=== PATIENT | male | born 1995 | race Caucasian/White ===

== ENCOUNTER 2019-09-22 20:10 | Emergency (ER) | payer MEDICAID, SELFPAY ==
[2019-09-22 20:19] VITALS: BP 112/69; PULSE 92; RESP 18; TEMP 37.9; O2SAT 96; BMI 23.1
[2019-09-22 20:31] VITALS: BP 112/69; PULSE 92; RESP 18; TEMP 37.9; O2SAT 96; BMI 23.1
[2019-09-22 20:39] LABS: UTC Strep Screen (Rapid) Positive (Negative)
--- NOTE | 2019-09-22 20:40 | HMH.EDUTC ---
[facility] [place] Disposition Clinical Impression: Strep throat Disposition: Home, Self-Care Condition on Discharge: Good Instructions: Strep Throat, DI for Strep Throat Additional Instructions: Drink plenty of fluids. Take tylenol or ibuprofen for pain or fever. Take the medications as directed. Follow up with your regular doctor. GO TO THE ER FOR ANY WORSENING SYMPTOMS THROW YOUR TOOTH BRUSH AWAY AND GET A NEW ONE TOMORROW. Prescriptions: Ondansetron [Zofran 4mg ODT] 4 mg PO Q8HP PRN #9 tab.rapdis PRN Reason: Nausea Transmission Status: Received by [facility] # [id number] Amoxicillin [Amoxicillin 500mg Tab] 500 mg PO TID 10 Days #30 tab Transmission Status: Received by [facility] # [id number] Referrals: Provider,Referral, [Primary Care Provider] - Time of Disposition: 20:49 Medical Decision Making - Medical Records Medical records reviewed: No: I reviewed the patient's medical records. - Geo Inquiry Pt receiving controlled substance: No Vital Signs: 09/22/19 20:19 09/22/19 20:31 Temperature 100.2 F H 100.2 F H Temperature Source Oral Oral Pulse Rate [Right Brachial] 92 H 92 H Respiratory Rate 18 18 Blood Pressure [Right Arm] 112/69 112/69 Blood Pressure Mean [Right Arm] 83 83 Blood Pressure Source [Right Arm] Automatic Cuff Automatic Cuff Blood Pressure Position [Right Arm] Sitting Sitting 02 Sat by Pulse Oximetry 96 96 Oxygen Delivery Method Room Air Room Air - Lab Data Lab results reviewed: Yes: I reviewed the patient's lab results. Lab Results 09/22/19 20:34: Strep Scn [facility] Positive A Orders (Tests/Meds): ED MEDICATIONS Discontinued Medications Generic Name Dose Route Start Last Admin Trade Name Freq PRN Reason Stop Dose Admin Amoxicillin 500 mg 09/22/19 20:45 09/22/19 20:50 Amoxicillin 500mg Capsule PO 09/22/19 20:46 500 mg ONCE ONE Administration Protocol Ibuprofen 800 mg 09/22/19 20:50 09/22/19 20:51 Motrin 400mg Tablet PO 09/22/19 20:51 800 mg ONCE ONE Administration Ibuprofen 800 mg 09/22/19 20:49 Motrin 400mg Tablet PO 09/22/19 20:50 ONCE ONE Ondansetron HCl 4 mg 09/22/19 20:45 09/22/19 20:50 Zofran 4mg Odt SL 09/22/19 20:46 4 mg ONCE ONE Administration [facility] [place] HPI - General Stated complaint: FEVER,SORE THROAT,COUGH,v&d,burks Time Seen by Provider: 09/22/19 20:40 Mode of Arrival: Ambulatory Source of Information: Patient Limitations: No Limitations Description of Symptoms (Recalled from Triage Doc. by RN): PATIENT C/O SORE THROAT, N/V/D, HEADACHE, AND FEVER X 3 DAYS HEENT Symptoms (Recalled from RN notes): Yes Resp Symptoms (Recalled from RN notes): No Skin Symptoms (Recalled from RN notes): No MS Symptoms (Recalled from RN notes): No Functional Status (Recalled from RN notes): WNL - History of Present Illness Provider Complaint: He c/o 2 days of worsening sore throat and fever. He has been exposed to strep throat. - Related Data Previous Rx's Medication Instructions Recorded Amoxicillin [Amoxicillin 500mg Tab] 500 mg PO TID 10 Days #30 tab 09/22/19 Ondansetron [Zofran 4mg ODT] 4 mg PO Q8HP PRN #9 tab.rapdis 09/22/19 Allergies Allergy/AdvReac Type Severity Reaction Status Date / Time iodine Allergy Verified 09/22/19 20:34 - Worker's Comp Is this a Worker's Comp case?: No [facility] History - Hepatitis A Screen Drug use history?: No High risk sexual behaviors?: No History of sexually transmitted infection?: No Currently employed?: No Childcare worker?: No Do you have indoor plumbing?: Yes Do you have electricity?: Yes Attestation statement:: This patient has been screened for Hepatitis A risk factors. I have reviewed the patient's past medical history: Yes - Social History Smoking Status: Current every day smoker Tobacco Type: cigarettes # Packs/Day (cigarettes): 1 Alcohol Intake: never Occupational Status: other ROS Obtained: Yes All systems reviewed & n
[2019-09-22 20:54] VITALS: BP 112/69; PULSE 92; RESP 18; TEMP 37.9; O2SAT 96
== END 2019-09-22 20:59 | disposition home or self-care (01) ==
PROVIDERS: Emergency Provider Nurse Practitioner Family
DX: J02.0 Streptococcal pharyngitis (principal); F17.210 Nicotine dependence, cigarettes, uncomplicated
CPT/HCPCS: 87880; 99201

== ENCOUNTER 2020-09-30 16:23 | Emergency (ER) | payer OTHER, SELFPAY ==
[2020-09-30 17:04] VITALS: BP 133/83; PULSE 76; RESP 16; TEMP 37.3; O2SAT 96; BMI 25.0
--- NOTE | 2020-09-30 17:20 | HMH.EDUTC ---
[facility] [place] Clinical Impression: Acute bronchitis Qualifiers: Bronchitis organism: unspecified organism Qualified Code(s): J20.9 - Acute bronchitis, unspecified Pharyngitis Qualifiers: Pharyngitis/tonsillitis etiology: unspecified etiology Qualified Code(s): J02.9 - Acute pharyngitis, unspecified Disposition: Home, Self-Care Condition on Discharge: Good Instructions: DI for Acute Bronchitis, Preventing the Spread of Coronavirus Discharge Instructions Additional Instructions: Drink plenty of fluids. Take tylenol or ibuprofen for pain or fever. Take the medications as directed. Follow up with your regular doctor. GO TO THE ER FOR ANY WORSENING SYMPTOMS Prescriptions: Brompheniramine/Pseudoephed/Dm [Bromfed Dm Cough Syrup] 5 ml PO Q6HP PRN #240 syrup PRN Reason: Cough Transmission Status: Received by [facility] #[id number] predniSONE [Prednisone 20mg Tab] 20 mg PO BID 4 Days #8 tab Transmission Status: Received by [facility] #[id number] Azithromycin [Z-Dino 250mg Tab*] 250 mg PO UD DOSE PK #6 tab Transmission Status: Received by [facility] #[id number] Referrals: Provider,Referral, [Primary Care Provider] - Forms: Work/School Release Time of Disposition: 17:34 Medical Decision Making - Medical Records Medical records reviewed: No: I reviewed the patient's medical records. - Geo Inquiry Pt receiving controlled substance: No Vital Signs: 09/30/20 17:04 09/30/20 17:41 Temperature 99.2 F 98 F Temperature Source Oral Pulse Rate 77 Pulse Rate [Right] 76 Respiratory Rate 16 16 Blood Pressure 129/83 Blood Pressure [Right Arm] 133/83 Blood Pressure Mean [Right Arm] 99 02 Sat by Pulse Oximetry 96 [facility] [place] HPI - General Stated complaint: vomitting runny nose sore throat sob Time Seen by Provider: 09/30/20 17:20 Mode of Arrival: Ambulatory Source of Information: Patient Limitations: No Limitations Description of Symptoms (Recalled from Triage Doc. by RN): pt c/o cough, runny nose, sore throat, n/v, and soa all ongoing for two days. HEENT Symptoms (Recalled from RN notes): Yes (sore throat) Resp Symptoms (Recalled from RN notes): Yes (soa and cough) Skin Symptoms (Recalled from RN notes): No MS Symptoms (Recalled from RN notes): No Functional Status (Recalled from RN notes): na - History of Present Illness Provider Complaint: He states that for the past 2 days he has had chilling, body aches, cough, sore throat, and chest congestion. - Related Data Previous Rx's Medication Instructions Recorded Amoxicillin [Amoxicillin 500mg Tab] 500 mg PO TID 10 Days #30 tab 09/22/19 Ondansetron [Zofran 4mg ODT] 4 mg PO Q8HP PRN #9 tab.rapdis 09/22/19 Azithromycin [Z-Dino 250mg Tab*] 250 mg PO UD DOSE PK #6 tab 09/30/20 Brompheniramine/Pseudoephed/Dm 5 ml PO Q6HP PRN #240 syrup 09/30/20 [Bromfed Dm Cough Syrup] predniSONE [Prednisone 20mg 20 mg PO BID 4 Days #8 tab 09/30/20 Tab] Allergies Allergy/AdvReac Type Severity Reaction Status Date / Time iodine Allergy Verified 09/22/19 20:34 - Worker's Comp Is this a Worker's Comp case?: No H History - Hepatitis A Screen Drug use history?: No High risk sexual behaviors?: No History of sexually transmitted infection?: No Currently employed?: No Childcare worker?: No Do you have indoor plumbing?: Yes Do you have electricity?: Yes Attestation statement:: This patient has been screened for Hepatitis A risk factors. I have reviewed the patient's past medical history: Yes - Social History Smoking Status: Current every day smoker Tobacco Type: cigarettes # Packs/Day (cigarettes): 1 Alcohol Intake: never Occupational Status: other ROS Obtained: Yes All systems reviewed & no additional complaints - Constitutional Constitutional: Reports system reviewed and no additional complaints, except as docu - Eyes Eyes: Reports system reviewed and no additional complaints, except as docu - ENT Ears, Nose,
[2020-09-30 17:41] VITALS: BP 129/83; PULSE 77; RESP 16; TEMP 36.6
[2020-10-01 08:53] LABS: UTC Strep Screen (Rapid) Negative (Negative)
== END 2020-09-30 17:43 | disposition home or self-care (01) ==
PROVIDERS: Emergency Provider Nurse Practitioner Family
DX: J20.9 Acute bronchitis, unspecified (principal); J02.9 Acute pharyngitis, unspecified
CPT/HCPCS: 87880; 99202; G0463; U0003

== ENCOUNTER 2021-09-02 14:10 | Emergency (ER) | payer SELFPAY ==
[2021-09-02 14:30] VITALS: BP 107/62; PULSE 80; RESP 17; TEMP 36.8; O2SAT 98; BMI 23.6
--- NOTE | 2021-09-02 14:54 | HMH.EDUTC ---
[facility] [place] Disposition Clinical Impression: Exposure to COVID-19 virus Disposition: Home, Self-Care Condition on Discharge: Good Instructions: DI for COVID-19 (Suspected or Confirmed ), Preventing the Spread of Coronavirus Discharge Instructions Additional Instructions: *Monitor Temp, Over the counter Motrin or Tylenol as directed/as needed Tylenol every 4 hours and Motrin every 6 hours (as long as your family doctor has told you that you can take it) for fever or pain. and straight to ER if unable to lower temp less than 101.0 after medication given Follow up IMMEDIATELY for new or worsening symptoms or no Noticeable improvement over the next 48-72 hours. 911 for difficulty breathing or swallowing You were tested for today for COVID19 your test result should be back in the next 24-48 hours, you may check your results on the [facility] My Health Portal Make sure to take your Vitamins Vit. C Vit D and Zinc if you can take them Referrals: Provider,Referral, MD [Primary Care Provider] - As needed Forms: Work/School Release Medical Decision Making - Geo Inquiry Pt receiving controlled substance: No Geo was queried for this patient: No Vital Signs: 09/02/21 14:30 Temperature 98.2 F Temperature Source Oral Pulse Rate [Right Brachial] 80 Respiratory Rate 17 Blood Pressure [Right Arm] 107/62 L Blood Pressure Mean [Right Arm] 77 Blood Pressure Source [Right Arm] Automatic Cuff Blood Pressure Position [Right Arm] Sitting 02 Sat by Pulse Oximetry 98 Oxygen Delivery Method Room Air Orders (Tests/Meds): ORDERS Category Date Time Status Covid-19 Nasal PCR ([facility]) Routine Lab 09/02/21 14:22 Received [facility] [place] HPI - General Stated complaint: covid test Time Seen by Provider: 09/02/21 14:54 Mode of Arrival: Ambulatory Source of Information: Patient Limitations: No Limitations Description of Symptoms (Recalled from Triage Doc. by RN): COVID TEST D/T EXPOSURE, DENIES SYMPTOMS HEENT Symptoms (Recalled from RN notes): No Resp Symptoms (Recalled from RN notes): No Skin Symptoms (Recalled from RN notes): No MS Symptoms (Recalled from RN notes): No Functional Status (Recalled from RN notes): WNL - History of Present Illness Provider Complaint: Patient states that he was recently around someone that was positive for COVID States that he isnt having any symptoms but wanted to get tested due to exposure - Related Data Allergies Allergy/AdvReac Type Severity Reaction Status Date / Time iodine Allergy Verified 09/22/19 20:34 - Worker's Comp Is this a Worker's Comp case?: No [facility] History - Hepatitis A Screen Attestation statement:: This patient has been screened for Hepatitis A risk factors. I have reviewed the patient's past medical history: Yes - Social History Smoking Status: Current every day smoker Tobacco Type: cigarettes # Packs/Day (cigarettes): 1 Alcohol Intake: never Occupational Status: other ROS Obtained: Yes All systems reviewed & no additional complaints, Yes Systems reviewed as appropriate & no additional complaints - Constitutional Constitutional: Reports system reviewed and no additional complaints, except as docu, Denies body ache, Denies chills, Denies fever(s) - ENT Ears, Nose, Mouth, and Throat: Reports system reviewed and no additional complaints, except as docu, Denies sinus pain, Denies sinus pressure, Denies sore throat - Cardiovascular Cardiovascular: Reports system reviewed and no additional complaints, except as docu - Respiratory Respiratory: Reports system reviewed and no additional complaints, except as docu - Gastrointestinal Gastrointestingal: Reports: system reviewed and no additional complaints, except as docu Physical Exam - General General appearance: alert, in no apparent distress - Respiratory Respiratory exam: Present: normal lung sounds bilaterally. Absent: respiratory distress - Cardiovascular Cardiovascular exam: Present: regular rate, norm
[2021-09-02 14:55] VITALS: BP 107/62; PULSE 80; RESP 17; TEMP 36.8; O2SAT 98
== END 2021-09-02 15:00 | disposition home or self-care (01) ==
PROVIDERS: Emergency Provider Nurse Practitioner
DX: Z20.822 Contact with and (suspected) exposure to COVID-19 (principal)
CPT/HCPCS: 99212; C9803; G0463; U0003; U0005

== ENCOUNTER 2022-08-25 19:08 | Emergency (ER) | payer OTHER, SELFPAY ==
[2022-08-25 19:10] VITALS: BP 149/79; PULSE 90; RESP 16; TEMP 36.9; O2SAT 99; BMI 22.4
--- NOTE | 2022-08-25 19:16 | HMH.EDGENADL ---
Discharge Plan Disposition Patient Disposition: Home, Self-Care Condition: Fair Prescriptions Prescriptions: New pramoxine [Proctofoam] 1 % foam 1 applic [place] BID Qty: 15 0RF Referrals Follow up/Referrals: Provider,Referral, [Primary Care Provider] - See instructions Activity Restrictions/Add. Instructions Additional Instructions/Restrictions: You can take [id number] ibuprofen and Tylenol for your pain. Follow-up with your primary care doctor as needed. Return to the emergency department immediately if you worsen in any way. Clinical Impressions Clinical Impression: Hemorrhoids Instructions Patient Instructions: DI for Hemorrhoids, Hemorrhoids, Hemorrhoids (Alternative Therapy) Discharge ED Provider: Daija Mercado Adult HPI General Chief complaint: PAIN Stated complaint: hemorroid Time Seen by Provider: 08/25/22 19:16 History of Present Illness HPI narrative: The patient presents to the emergency department complaining of a hemorrhoids that has been bothering him for the last 3 days. He has never had a hemorrhoid before. He denies any rectal bleeding. He denies fever, nausea, vomiting, diarrhea. Related Data Previous Rx's Medication Instructions Recorded pramoxine 1 % topical foam 1 applic [place] BID #15 grams 08/25/22 (Proctofoam) Allergies Allergy/AdvReac Type Severity Reaction Status Date / Time iodine Allergy Verified 09/22/19 20:34 [facility] Disclaimer: The information contained in this section may have been updated after the patient was seen, as this information can be updated by other users. Social History Smoking Status: Current every day smoker tobacco type: cigarettes packs per day: 1 alcohol intake: never current occupational status: other Travel in the last 8 weeks: None ROS Obtained: Yes All systems reviewed & no additional complaints except as documented Physical Exam General General appearance: alert Head Head exam: atraumatic Eye Eye exam: Present normal appearance ENT ENT exam: Present normal exam Neck Neck exam: Present normal inspection and full ROM; Absent tenderness or meningismus Chest Chest inspection: Present normal inspection and symmetric chest wall rise; Absent tenderness Respiratory Respiratory exam: Present normal lung sounds bilaterally; Absent respiratory distress or accessory muscle use Cardiovascular Cardiovascular exam: Present regular rate, normal rhythm and normal heart sounds Abdominal Exam Abdominal exam: Present soft and normal bowel sounds; Absent distention, tenderness, heel tap sign, Burns's sign, Rovsing's sign, tenderness at McBurney's Point or mass Rectal Exam Rectal exam: Present hemorrhoids (Mildly inflamed without bleeding on the right side about the size of a pea.) Extremities Exam Extremities exam: Present normal inspection and full ROM Back Exam Back exam: Present normal inspection; Absent CVA tenderness (R) or CVA tenderness (L) Neurological Exam Neurological exam: Present alert and oriented X3 Psychiatric Psychiatric exam: Present normal affect and normal mood Skin Skin exam: Present warm, dry, intact and normal color Medical Decision Making Geo Inquiry Pt receiving controlled substance: No Vital Signs: 08/25/22 19:10 Temperature 98.5 F Temperature Source Oral Pulse Rate [Right] 90 Respiratory Rate 16 Blood Pressure [Right Arm] 149/79 H Blood Pressure Mean [Right Arm] 102 Blood Pressure Source [Right Arm] Automatic Cuff Blood Pressure Position [Right Arm] Sitting 02 Sat by Pulse Oximetry 99 Oxygen Delivery Method Room Air Critical Care Time Critical Care Time Critical Care Time: No Attestation: On 08/25/22, the high probability of a clinically significant, sudden or life threatening deterioration of the following system(s) required my full and direct attention, intervention and personal management. The time I documented below is in addition to time spent performing re
[2022-08-25 19:25] VITALS: BP 149/73; PULSE 88; RESP 18; TEMP 36.9
== END 2022-08-25 19:31 | disposition home or self-care (01) ==
PROVIDERS: Emergency Provider Emergency Medicine
DX: K64.9 Unspecified hemorrhoids (principal); F17.210 Nicotine dependence, cigarettes, uncomplicated
CPT/HCPCS: 99283; 99284

== ENCOUNTER 2023-09-18 16:38 | Emergency (ER) | payer OTHER, SELFPAY ==
[2023-09-18 16:39] VITALS: BP 108/63; PULSE 78; RESP 18; TEMP 37.3; O2SAT 100; BMI 23.7
--- NOTE | 2023-09-18 17:35 | HMH.EDGENADL ---
Discharge Plan Disposition Patient Disposition: Home, Self-Care Prescriptions Prescriptions: New ondansetron 4 mg tablet,disintegrating 4 mg PO Q6H PRN (Reason: nausea and vomiting) 5 Days Qty: 20 0RF Referrals Follow up/Referrals: Provider,Referral, [Primary Care Provider] - See instructions Clinical Impressions Clinical Impression: Nausea vomiting and diarrhea, Food poisoning Stand Alone Forms Stand Alone Forms: Work/School Release Instructions Patient Instructions: DI for Diarrhea and Traveler's Diarrhea -- Adult, DI for Nausea -- Adult Discharge ED Provider: Katrin Natarajan General Adult HPI General Chief complaint: Nausea/Vomiting/Diarrhea Stated complaint: vomiting,sore throat,SOA, fever Time Seen by Provider: 09/18/23 17:22 Mode of Arrival: Ambulatory Source of Information: Patient Limitations: No Limitations Description of Symptoms (Recalled from ER Triage Doc. by RN): Patient reports eating bad food a couple of days ago and now he has a sore throat, fevers, vomiting and headache. History of Present Illness HPI narrative: 28-year-old male who is accompanied by his friend both of whom are here for the same symptoms today including nausea vomiting diarrhea right after eating a hot dog a few days ago. They have had numerous episodes of vomiting and diarrhea none of which has had any blood in no fevers objectively. It is that they felt warm. Has had a mild headache associated with this. Denies any past medical history. Related Data Previous Rx's Medication Instructions Recorded ondansetron 4 mg disintegrating 4 mg PO Q6H PRN nausea and 09/18/23 tablet vomiting 5 days #20 tabs Allergies Allergy/AdvReac Type Severity Reaction Status Date / Time iodine Allergy Verified 09/22/19 20:[address] [facility] Disclaimer: The information contained in this section may have been updated after the patient was seen, as this information can be updated by other users. Social History Smoking Status: Unknown if ever smoked alcohol intake: never current occupational status: other Travel in the last 8 weeks: None ROS Obtained: Yes All systems reviewed & no additional complaints except as documented Physical Exam General General appearance: alert and in no apparent distress Respiratory Respiratory exam: Present normal lung sounds bilaterally Cardiovascular Cardiovascular exam: Present regular rate and normal rhythm Abdominal Exam Abdominal exam: Present soft; Absent distention or tenderness Neurological Exam Neurological exam: Present alert and oriented X3 Medical Decision Making Geo Inquiry Pt receiving controlled substance: No Vital Signs: 09/18/23 16:39 09/18/23 18:32 09/18/23 18:54 Temperature 99.2 F 99.0 F Temperature Source Oral Oral Pulse Rate 75 60 Pulse Rate [Radial] 78 Respiratory Rate 18 16 Blood Pressure 109/64 L 110/75 Blood Pressure [Right Arm] 108/63 L Blood Pressure Mean [Right Arm] 78 Blood Pressure Source Automatic Cuff Blood Pressure Source [Right Arm] Automatic Cuff Blood Pressure Position Sitting Blood Pressure Position [Right Arm] Sitting 02 Sat by Pulse Oximetry 100 97 Oxygen Delivery Method Room Air Room Air Room Air Lab Data Lab results reviewed: Yes I reviewed the patient's lab results. Lab Results 09/18/23 17:50: WBC 6.7, RBC 5.07, Hgb 15.6, Hct 45.7, MCV 90.1, MCH 30.7, MCHC 34.1, RDW 13.1, Plt Count 150, MPV 8.5, Neut % (Auto) 74.4, Lymph % (Auto) 13.2, Garrett % (Auto) 10.9 H, Eos % (Auto) 0.7, Baso % (Auto) 0.8, Neut # (Auto) 5.0, Lymph # (Auto) 0.9, Garrett # (Auto) 0.7, Eos # (Auto) 0.1, Baso # (Auto) 0.1, Sodium 139, Potassium 3.5, Chloride 101, Carbon Dioxide 26, Anion Gap 15.5 H, BUN 6 L, Creatinine 0.90, Estimated Creat Clear 150, Estimated GFR 101, Est GFR ( Amer) 122, Glucose 87, Calcium 9.5, Total Bilirubin 0.6, AST 23, ALT 18, Alkaline Phosphatase 58, Total Protein 7.5, Albumin 4.6, Globulin 2.9, Albumin/Globulin Ratio 1.6, Lipase 23 09/18/23 17:50 09/18/23 17:50 Orders (Tests/Meds): ED MEDICATIONS Discontinued Medications Generic Name Dose Route Start Last Admin Trade Name Freq PRN Reason Stop Dose Admin Lactated Ringer's 1,000 mls @ 999 mls/hr 09/18/23 17:45 09/18/23 17:55 Lactated Ringer's 1000 Ml Bag IV 09/18/23 18:45 999 mls/hr .Q1H1M ANNE Administration Ketorolac Tromethamine 15 mg 09/18/23 17:34 09/18/23 17:56 Ketorolac 30mg/Ml Vial IV 09/18/23 17:35 15 mg ONCE ONE Administration Ondansetron HCl 4 mg 09/18/23 17:34 09/18/23 17:56 Ondansetron 4mg/2ml Vial IV 09/18/23 17:35 4 mg ONCE ONE Administration ORDERS Category Date Time Status CBC w/Auto Diff [Complete Blood Count Auto Diff] Stat Lab 09/18/23 17:50 Completed CMP [Comprehensive Metabolic Panel] Stat Lab 09/18/23 17:50 Completed Lipase Stat Lab 09/18/23 17:50 Completed Medical Decision Narrative: 28-year-old male presenting today with above history and physical very benign in appearance but has an intolerance of p.o. at home will give IV fluids Toradol Zofran and reassess. Most likely explanation given the fact that he is here with similar the exact same symptoms for the same duration and onset after eating the same food is food poisoning. Viral etiologies would have similar presentations and may be clinically insignificant explained this to them but treatment should be the same. Will reassess after therapies have been administered. Reassessment 7:10 PM patient feeling much better serial exams benign tolerating p.o. return precautions emphasized patient was discharged in improved and stable condition. Critical Care Critical Care Time Critical Care Time: No
[2023-09-18] MEDS: LACTATED RINGERS 1000ML 1,000 ML 999 ML IV (17:55)
[2023-09-18] MEDS: KETOROLAC 30MG/ML VIAL 15 MG IV (17:56)
[2023-09-18] MEDS: ONDANSETRON 4MG/2ML VIAL 4 MG IV (17:56)
[2023-09-18 18:05] LABS: Basophils # 0.1 K/mm3 (0-0.2); Basophils % 0.8 % (0.1-2.0); Eosinophils # 0.1 K/mm3 (0.0-0.4); Eosinophils % 0.7 % (0.1-12.0); Hematocrit 45.7 % (42.0-52.0); Hemoglobin 15.6 g/dL (14.1-18.0); Lymphocytes # 0.9 K/mm3 (0.7-4.5); Lymphocytes % 13.2 % (10-50); Mean Corpuscular HGB Conc 34.1 g/dL (31.8-35.4); Mean Corpuscular Hemoglobin 30.7 pg (27.0-31.2); Mean Corpuscular Volume 90.1 fl (80-94); Mean Platelet Volume 8.5 fl (7.4-10.4); Monocytes # 0.7 K/mm3 (0.1-1.0); Monocytes % 10.9 % (1.7-9.3); Neutrophils % 74.4 % (37.0-80.0); Platelet Count 150 K/mm3 (142-424); Red Blood Count 5.07 M/mm3 (4.60-6.20); Red Cell Distribution Width 13.1 % (11.5-17.5); White Blood Count 6.7 K/mm3 (4.8-10.8)
[2023-09-18 18:16] LABS: Alanine Aminotransferase 18 U/L (12-78); Alkaline Phosphatase 58 U/L (38-126); Aspartate Amino Transferase 23 U/L (17-59); Bilirubin,Total 0.6 mg/dl (0.2-1.3); Blood Urea Nitrogen 6 mg/dl (9-20); Calcium 9.5 mg/dl (8.4-10.2); Carbon Dioxide 26 mmol/L (22.0-30.0); Chloride 101 mmol/L (98-107); Creatinine Clearance Estimated 150 mL/min (50-200); Estimated Glomerular Filt Rate 101 ml/min (>60); GFR (African American) 122 ML/MIN (>60)
[2023-09-18 18:27] LABS: Albumin Level 4.6 g/dl (3.5-5.0); Albumin/Globulin Ratio 1.6 (1.1-1.8); Anion Gap 15.5 mEq/L (5-15); Globulin 2.9 g/dL (1.3-3.2); Glucose 87 mg/dl (74-100); Lipase 23 U/L (23-300); Potassium 3.5 mmoL/L (3.5-5.1); Sodium 139 mmol/L (136-145); Total Protein,Serum 7.5 g/dl (6.3-8.2)
[2023-09-18 18:32] VITALS: BP 109/64; PULSE 75; O2SAT 97
--- NOTE | 2023-09-18 18:51 | PC.NURSE ---
pt's IVF are complete, he is feeling much better. aware
[2023-09-18 18:54] VITALS: BP 110/75; PULSE 60; RESP 16; TEMP 37.2; O2SAT 100
== END 2023-09-18 19:18 | disposition home or self-care (01) ==
PROVIDERS: Emergency Provider Student in an Organized Health Care Education/Training Program
DX: R11.2 Nausea with vomiting, unspecified (principal); A05.9 Bacterial foodborne intoxication, unspecified
CPT/HCPCS: 80053; 83690; 85025; 96361; 96374; 96375; 99284; J1885; J2405; J7120

== ENCOUNTER 2024-10-16 16:36 | Emergency (ER) | payer OTHER, SELFPAY ==
[2024-10-16 16:51] VITALS: BP 114/72; PULSE 86; RESP 16; TEMP 37.2; O2SAT 99; BMI 25.7
--- NOTE | 2024-10-16 17:11 | HMH.EDGENADL ---
Discharge Plan Disposition Patient Disposition: Home, Self-Care Condition: Good Prescriptions Prescriptions: New prednisone 10 mg tablet 10 mg PO DAILY Qty: 42 0RF Rx Instructions: Please take 40 mg day 1-7, 30 mg day 8-9, 20 mg day 10-12, 10 mg day 13-14 No Action ondansetron 4 mg tablet,disintegrating 4 mg PO Q6H PRN (Reason: nausea and vomiting) 5 Days Qty: 20 0RF Referrals Follow up/Referrals: Provider,Referral, MD [Primary Care Provider, Medical] - See instructions Activity Restrictions/Add. Instructions Additional Instructions/Restrictions: Please take 40 mg of prednisone days 1-7, then 30 mg of prednisone days 8-9, 20 mg of prednisone on days 10-12, and 10 mg of prednisone day 13-14. You can take Zyrtec or Benadryl over the counter for itching. Clinical Impressions Clinical Impression: Allergic dermatitis due to poison kristyn Instructions Patient Instructions: DI for Skin Abscess Print Language Print Language: Macedonian Discharge ED Provider: Sanford Bello Adult HPI General Chief complaint: Skin/Abscess/Foreign Body Stated complaint: covered in poison kristyn Time Seen by Provider: 10/16/24 16:45 Mode of Arrival: Ambulatory Source of Information: Patient Description of Symptoms (Recalled from ER Triage Doc. by RN): Patient states he has had poison kristyn on his arms for 4 days History of Present Illness HPI narrative: This is a 29-year-old male patient with no past medical history no daily medications who is presenting to the emergency department today for evaluation of poison kristyn exposure. He states that he was exposed 3 to 4 days ago and the rash is worsened since onset. He states that it is spreading up both of his arms and has progressed towards encroachment on his hands. He has reported incessant itching with vesicle formation on the skin. He has had exposure like this before that has required treatment with steroids due to intractable symptoms and spreading. Related Data Previous Rx's ?Medication ?Instructions ?Recorded ondansetron 4 mg disintegrating 4 mg PO Q6H PRN nausea and 09/18/23 tablet vomiting 5 days #20 tabs prednisone 10 mg tablet 10 mg PO DAILY #42 tabs 10/16/24 Allergies Allergy/AdvReac Type Severity Reaction Status Date / Time iodine Allergy Verified 09/22/19 20:34 [facility] Disclaimer: The information contained in this section may have been updated after the patient was seen, as this information can be updated by other users. Social History Smoking Status: Current every day smoker tobacco type: cigarettes packs per day: 1 alcohol intake: never current occupational status: other Travel in the last 8 weeks?: None Have you lived/traveled outside [place] in past 30 days?: No Contact w/someone who lives/traveled outside [place] past 30 days?: No Exposure to someone with infectious disease in past 14 days?: No Do you have a fever (greater than 100.4 F or 38 C)?: No Have you tested positive for COVID-19?: No Exposed to someone with COVID-19 in past 14 days?: No Do you have a sore throat?: No Do you have a cough?: No Do you have any weakness?: No Do you have any diarrhea?: No Are you experiencing any unusual bleeding?: No Do you have any muscle aches/pain?: No Do you have any abdominal pain?: No Are you experiencing loss of taste or smell?: No ROS Obtained: Yes Systems reviewed as appropriate & no additional complaints except as documented Physical Exam General General appearance: alert and in no apparent distress Head Head exam: atraumatic and normocephalic Eye Eye exam: Present PERRL and EOMI ENT ENT exam: Present normal oropharynx and mucous membranes moist Neck Neck exam: Present full ROM and trachea midline Respiratory Respiratory exam: Present normal lung sounds bilaterally; Absent respiratory distress Cardiovascular Cardiovascular exam: Present regular rate and normal rhythm Abdominal Exam Abdominal exam: Present soft; Absent tenderness Extremities Exam Extremities exam: Present normal inspection; Absent tenderness Back Exam Back exam: Absent vertebral tenderness Neurological Exam Neurological exam: Present alert and oriented X3 Skin Skin exam: Present warm, dry and rash Medical Decision Making Medical Records Medical records reviewed: Yes I reviewed the patient's medical records. Screening: Per USPSTF and CDC recommendations, given the prevalence of disease in our region, it is our hospital?s policy to screen for HIV and viral Hepatitis for all patients aged 18 and over and those with ongoing risk factors. Geo Inquiry Pt receiving controlled substance: No Geo was queried for this patient: No Vital Signs: 10/16/24 16:51 Temperature 99 F Temperature Source Oral Pulse Rate [Right Brachial] 86 Respiratory Rate 16 Blood Pressure [Right Arm] 114/72 Blood Pressure Mean [Right Arm] 86 Blood Pressure Source [Right Arm] Automatic Cuff Blood Pressure Position [Right Arm] Sitting 02 Sat by Pulse Oximetry 99 Medical Decision Narrative: In summary this is a 29-year-old male patient who is presenting to the emergency department today for evaluation of poison kristyn dermatitis. This patient has no comorbidities that would complicate their medical management or care. On initial evaluation of the patient they were resting comfortably in no acute distress and nontoxic in appearance. They are hemodynamically stable, saturating well room air, and are neurologically intact. On physical examination of the patient he has obvious contact dermatitis with vesicle formation on his bilateral upper extremities right greater than left. There is encroachment of this rash towards his hands bilaterally with no involvement of the palmar surfaces. He does not have any rash on his thorax or on his neck/head. No rash on his face. Differential diagnosis includes contact dermatitis, allergic dermatitis, urshiol dermatitis, among others. Patient did not necessitate any emergent medications or interventions while in the emergency department. Given the fact that this symptoms have progressed over the last 4 days and are now spreading towards the hands we will treat this as severe dermatitis with a oral prednisone taper over 2 weeks. I have given these instructions to the patient. He knowledges understanding. At this time all questions been answered and all parties are agreeable with the decision to discharge home Critical Care Critical Care Time Critical Care Time: No
[2024-10-16 17:24] VITALS: BP 114/72; PULSE 86; RESP 16; TEMP 37.2; O2SAT 99
== END 2024-10-16 17:26 | disposition home or self-care (01) ==
PROVIDERS: Emergency Provider Student in an Organized Health Care Education/Training Program
DX: L23.7 Allergic contact dermatitis due to plants, except food (principal)
CPT/HCPCS: 99283